=== PATIENT | male | born 2000 | race Two or more races ===

== ENCOUNTER 2025-02-08 15:12 | Emergency (ER) | payer MEDICAID, OTHER ==
[~2025-02-08] VITALS: Ht 185.4 cm; Wt 98.4 kg
--- NOTE | 2025-02-08 15:32 | ECG ---
[facility] Test Date: 2025-02-08 Test Time: 15:25:27 Pat Name: SARAH HODGES Department: Room: Gender: Dental Secretary: EVI : 2000 Requested By: PAOLA VAZQUEZ Order Number: [id number] Reading MD: Robb Tesfaye Measurements Intervals [place] Rate: 65 P: 23 NM: 117 QRS: 90 QRSD: 107 T: 30 QT: 388 QTc: 404 Interpretive Statements Sinus rhythm Borderline short NM interval Borderline right axis deviation Electronically Signed On 02-12-2025 10:54:22 PST by Robb Tesfaye Please click the below link to view image of tracing.
--- NOTE | 2025-02-08 15:41 | ED.PDOC ---
HPI Comments A 24 YEAR OLD MALE PRESENTS TO THE ED WITH COMPLAINT OF CHEST PAIN. PATIENT STATES HE HAS BEEN EXPERIENCING LEFT-SIDED CHEST DISCOMFORT/PAIN THAT RADIATES TO HIS LEFT ARM WITH A NUMBNESS AND TINGLING SENSATION FOR THE PAST 2 DAYS. PATIENT DENIES FEVER, CHILLS, SHORTNESS OF BREATH, ABDOMINAL PAIN, NAUSEA, VOMITING, HEADACHE, OR OTHER COMPLAINTS. NO OTHER SYMPTOMS OR MODIFYING FACTORS AT THIS TIME. PATIENT IS ALERT, ORIENTED X 4, AND HAS STEADY GAIT. Chief Complaint: Chest Pain Time Seen by MD: 15:21 Reviewed Notes: Nurses Notes, Medications, Allergies Allergies: Coded Allergies: NO KNOWN ALLERGIES (Unverified , 02/08/25) Information Source: Patient Mode of Arrival: Ambulatory Severity: Moderate Timing: Days Duration: Since onset, Days Prehospital treatment: None Location: Chest (L) Radiation: Arm (L) Quality: Aching Onset: At Rest Cardiac Risk Factors: None PE Risk Factors: None History of: None Modifying Factors: Nothing Associated Signs and Symptoms: None Past Medical History PAST MEDICAL HISTORY: Denies Surgical History: Denies all surgeries Family History Family History: Reviewed,noncontributory to illness Social History Smoker: Non-Smoker Alcohol: Denies ETOH Use Drugs: Denies Drug Use Lives In: Home Constitutional: reports: others (ANXIOUS ); denies: chills, diaphoresis, fatigue, fever, malaise, sweats, weakness EENTM: denies: blurred vision, double vision, ear bleeding, ear discharge, ear drainage, ear pain, ear ringing, eye pain, eye redness, hearing loss, mouth pain, mouth swelling, nasal discharge, nose bleeding, nose congestion, nose pain, photophobia, tearing, throat pain, throat swelling, voice changes, others Respiratory: denies: cough, hemoptysis, orthopnea, SOB at rest, shortness of breath, SOB with excertion, stridor, wheezing, others Cardiovascular: reports: chest pain; denies: dizzy spells, diaphoresis, Dyspnea on exertion, edema, irregular heart beat, left arm pain, lightheadedness, palpitations, PND, syncope, others Gastrointestinal: denies: abdomen distended, abdominal pain, blood streaked bowels, constipated, diarrhea, dysphagia, difficulty swallowing, hematemesis, melena, nausea, poor appetite, poor fluid intake, rectal bleeding, rectal pain, vomiting, others Genitourinary: denies: burning, dysuria, flank pain, frequency, hematuria, incontinence, penile discharge, penile sore, pain, testicle pain, testicle swelling, urgency, others Neurological: denies: dizziness, fainting, headache, left sided numbness, left sided weakness, numbness, paresthesia, pre-existing deficit, right sided numbness, right sided weakness, seizure, speech problems, tingling, tremors, wea kness, others Musculoskeletal: denies: back pain, gout, joint pain, joint swelling, muscle pain, muscle stiffness, neck pain, others Integumetry: denies: bruises, change in color, change in hair/nails, dryness, l aceration, lesions, lumps, rash, wounds, others Allergic/Immunocompromised: denies: Difficulty Healing, Frequent Infections, Hives, Itching, others Hematologic/Lymphatic: denies: anemia, blood clots, easy bleeding, easy bruising, swollen glands, others Endocrine: denies: excessive hunger, excessive sweating, excessive thirst, excessive urination, flushing, intolerance to cold, intolerance to heat, unexplained weight gain, unexplained weight loss, others Psychiatric: denies: anxiety, bipolar disorder, depression, hopeless, panic disorder, schizophrenia, sleepless, suicidal, others All Other Systems: Reviewed and Negative Physical Exam General Appearance: Mild Distress, Normal, Other (ANXIOUS ) HEENT: Normal ENT Inspection, PERRL/EOMI, Pharynx Normal, TMs Normal Neck: Full Range of Motion, Non-Tender, Normal, Normal Inspection Respiratory: Lungs Clear, No Accessory Muscle Use, No Respiratory Distress, Normal Breath Sounds, Other (TENDERNESS LEFT CHEST. ) Cardiovascular: No Edema, No JVD, No Murmur, No Gallop, Normal Peripheral Pulses, Regular Rate/Rhythm Breast Exam: Deferred Gastrointestinal: No Organomegaly, Non Tender, No Pulsatile Mass, Normal Bowel Sounds, Soft Genitalia: Deferred Pelvic: Deferred Rectal: Deferred Extremities: No calf tenderness, Normal capillary refill, Normal inspection, Normal range of motion, Non-tender, No pedal edema Musculoskeletal : Apperance: Normal Neurologic: Alert, cream ripener II-XII nml as Tested, No Motor Deficits, Normal Affect, Normal Mood, No Sensory Deficits Cerebellar Function: Normal Reflexes: Normal Skin: Dry, Normal Color, Warm Peripheral Pulses: 2+ carotid (R), 2+ carotid (L), 2+ dorsalis pedis (R), 2+ dorsalis pedis (L) Lymphatic: No Adenopathy EKG EKG : Pulse Rate (adult): 65 [place]: Normal Cardiac Rhythm: NSR Block: None Hypertrophy: None ST: Normal Was a procedure done? Was a procedure done?: No CP Differential Dx Differential Diagnosis: Angina, Anxiety / Panic Attack, Hyperventilation, [place] Differential Diagnosis: N/A Differential Diagnosis: Angina, Chest Wall Pain, Costochondritis, Esophageal reflux/spasm, Myocardial Infarction X-Ray, Labs, Meds, VS Vital Signs Date Time Temp Pulse Resp B/P (MAP) Pulse Ox O2 Delivery O2 Flow Rate FiO2 02/08/25 15:43 98.3 92 18 143/81 (101) 98 98.3 02/08/25 15:41 65 02/08/25 15:25 65 02/08/25 15:12 98.3 92 18 143/81 98 98.3 Lab Test 02/08/25 16:28 02/08/25 15:38 Range/Units Troponin I High Sensitivity 9 8 </=54 ng/L White Blood Count 7.6 4.4-10.8 10^3/uL Red Blood Count 5.48 4.5-5.90 10^6/uL Hemoglobin 16.4 13.5-17.5 g/dL Hematocrit 46.2 41.0-53.0 % Mean Corpuscular Volume 84.4 80.0-100.0 fL Mean Corpuscular Hemoglobin 29.9 28.0-32.0 pg Mean Corpuscular Hemoglobin Concent 35.5 32.0-36.0 g/dL Red Cell Distribution Width 12.9 11.8-14.3 % Platelet Count 288 140-450 10^3/uL Mean Platelet Volume 7.8 6.9-10.8 fL Neutrophils (%) (Auto) 62.6 37.0-80.0 % Lymphocytes (%) (Auto) 26.6 10.0-50.0 % Monocytes (%) (Auto) 6.3 0.0-12.0 % Eosinophils (%) (Auto) 3.5 0.0-7.0 % Basophils (%) (Auto) 1.0 0.0-2.0 % Neutrophils # (Auto) 4.8 1.6-8.6 10 ^3/uL Lymphocytes # (Auto) 2.0 0.4-5.4 10 ^3/uL Monocytes # (Auto) 0.5 0-1.3 10 ^3/uL Eosinophils # (Auto) 0.3 0-0.8 10 ^3/uL Basophils # (Auto) 0.1 0-0.2 10 ^3/uL Nucleated Red Blood Cells 0.1 % Sodium Level 141 136-145 mmol/L Potassium Level 3.8 3.5-5.1 mmol/L Chloride Level 103 98-107 mmol/L Carbon Dioxide Level 29 20-31 mmol/L Anion Gap 9 5-15 Blood Urea Nitrogen 10 9-23 mg/dL Creatinine 1.01 0.700-1.30 mg/dL Glomerular Filtration Rate Calc 105 >90 mL/min BUN/Creatinine Ratio 9.9 L 10.0-20.0 Serum Glucose 112 H 74-106 mg/dL Calcium Level 9.7 8.7-10.4 mg/dL EXAM DESCRIPTION: Chest 1 View CLINICAL HISTORY: CP COMPARISON: None FINDINGS and IMPRESSION: Lines, tubes, and support devices: None. Lungs / Pleura: No consolidation. No pleural effusion. No pneumothorax. Mediastinum: Normal cardiomediastinal silhouette. Osseous structures / Soft tissues: No acute findings. ATED BY: ZHENG CIFUENTES MD DICTATED DATE/TIME: 02/08/251621 SIGNED BY: ZHENG CIFUENTES MD SIGNED DATE/TIME: 02/08/251621 CC: X-Ray, Labs, Meds, VS Comment EXTERNAL MEDICAL RECORDS REVIEWED: [NONE] INDEPENDENT HISTORIANS: [NONE] SOCIAL DETERMINANTS OF HEALTH: [NONE] LABS ORDERED: CBC, BNP, TROPONIN REVIEWED AND INTERPRETED RESULTS: NORMAL IMAGING ORDERED: XR CHEST TREATMENTS ORDERED: NONE PROCEDURES PERFORMED: NONE CRITICAL CARE TIME: NONE I HAVE DISCUSSED THE PATIENT WITH THE ATTENDING PHYSICIAN DR. THORPE AND HE AGREES WITH THE PATIENT'S PLAN OF CARE AND DISPOSITION. BASED ON HISTORY OF PRESENT ILLNESS, AND PHYSICAL EXAM, PATIENT WILL BE DISCHARGED HOME. SHARED DECISION MAKING: DISCUSSED WITH PATIENT THAT THEIR WORKUP WAS NORMAL. PATIENT INSTRUCTED TO FOLLOW UP WITH PRIMARY CARE PROVIDER IN 1-2 DAYS FOR RE-E VALUATION OF SYMPTOMS. PATIENT VERBALIZES UNDERSTANDING TO RETURN TO ED FOR NEW OR WORSENING SYMPTOMS OR IF FOLLOW UP WITH PCP CANNOT BE OBTAINED. PATIENT FEELS COMFORTABLE GOING HOME AT THIS TIME. ALL QUESTIONS ADDRESSED AT TIME OF DISCHARGE. Images Reviewed?: Images reviewed and evaluated by me Time of 1ST Reevaluation: 17:11 Reevaluation 1ST: Improved Patient Education/Counseling: Diagnosis, Treatment, Need For Follow Up Family Education/Counseling: Diagnosis, Treatment, Need For Follow Up Medical Screening: No EMC Exist At This Time SEPSIS Sepsis Screen Date sepsis recognized/suspect: Feb 08, 2025 Time Sepsis recognized/suspect: 1512 Recent Procedure: No On Antibiotic Therapy: No Respiratory Rate >20: No Heart Rate >90: Yes Temp<36 C (96.8 F) or >38.3 C: No SBP <90 or MAP <65 mmHG: No New Acute Mental Status Change: No Is the patient on CPAP, BIPAP,: No Physician Orders Chest Portable (02/08/25 15:22) Urinalysis (02/08/25 15:22) Electrocardigram (02/08/25 16:22) Electrocardigram (02/08/25 18:22) Vital Signs Date Time Temp Pulse Resp B/P (MAP) Pulse Ox O2 Delivery O2 Flow Rate FiO2 02/08/25 15:43 98.3 92 18 143/81 (101) 98 98.3 02/08/25 15:41 65 02/08/25 15:25 65 02/08/25 15:12 98.3 92 18 143/81 98 98.3 Laboratory Tests Test 02/08/25 15:38 White Blood Count 7.6 10^3/uL (4.4-10.8) Departure 1 Departure Time of Disposition: 17:11 Impression: Primary Impression: Atypical chest pain Disposition: 01 HOME / SELF CARE / HOMELESS Condition: Stable Additional Instructions: FOLLOW-UP WITH PCP IN 1 TO 2 DAYS. RETURN TO ED FOR ANY NEW OR WORSENING SYMPTOMS. Discharged With: Self Critical Care Note Critical Care Time?: No Stability Stability form required: No Heart Score Heart Score: Heart Score Response (Comments) Value History N/A 0 EKG N/A 0 Age N/A 0 Risk Factors No known risk factors 0 Troponin Normal limit 0 Total 0 I personally scribed for PAOLA VAZQUEZ ([email or web address]) on 02/08/25 at 15:41. Electronically submitted by Pradip Jacobo ([email or web address]). I personally scribed for PAOLA VAZQUEZ ([email or web address]) on 02/08/25 at 17:04. Electronically submitted by Pradip Jacobo ([email or web address]). PAOLA VAZQUEZ Feb 08, 2025 15:41
[2025-02-08 15:43] VITALS: BP 143/81; PULSE 92; RESP 18; TEMP 98.3; O2SAT 98
[2025-02-08 15:56] LABS: Hematocrit 46.2 % (41.0-53.0); Hemoglobin 16.4 g/dL (13.5-17.5); Mean Corpuscular Hemoglobin 29.9 pg (28.0-32.0); Mean Corpuscular Volume 84.4 fL (80.0-100.0); Nucleated Red Blood Cells % 0.1 %
[2025-02-08 16:05] LABS: Anion Gap 9 (5-15); Carbon Dioxide 29 mmol/L (20-31); Chloride 103 mmol/L (98-107); Potassium 3.8 mmol/L (3.5-5.1); Sodium 141 mmol/L (136-145)
[2025-02-08 16:06] LABS: Calcium 9.7 mg/dL (8.7-10.4)
[2025-02-08 16:11] LABS: BUN/Creatinine Ratio 9.9 (10.0-20.0); Blood Urea Nitrogen 10 mg/dL (9-23)
[2025-02-08 16:17] LABS: Glucose 112 mg/dL (74-106)
--- NOTE | 2025-02-08 16:25 | DVH ---
EXAM DESCRIPTION: Chest 1 View CLINICAL HISTORY: CP COMPARISON: None FINDINGS and IMPRESSION: Lines, tubes, and support devices: None. Lungs / Pleura: No consolidation. No pleural effusion. No pneumothorax. Mediastinum: Normal cardiomediastinal silhouette. Osseous structures / Soft tissues: No acute findings.
== END 2025-02-08 17:12 | disposition home or self-care (01) ==
LOC: ER 15:12
DX: R07.89 Other chest pain (principal)
CPT/HCPCS: 36415; 71045; 80048; 84484; 85025; 93005